=== PATIENT | female | born 1940 | race Caucasian/White ===

== ENCOUNTER 2017-04-28 09:26 | Outpatient (CLI) | payer MEDICARE ==
--- NOTE | 2017-04-28 11:04 | RAD ---
LEFT HIP TWO VIEWS: History: Hip pain. FINDINGS: There is some mild arthritic change of the hip. Minimal joint space narrowing and some minimal spur formation. No fracture. The bones appear slightly demineralized. 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 POS: [facility]
== END 2017-04-28 09:27 | disposition home or self-care (01) ==
LOC: SCSRAD 09:26
PROVIDERS: ATTEND Family Medicine
DX: M25.552 Pain in left hip (principal); M16.12 Unilateral primary osteoarthritis, left hip

== ENCOUNTER 2017-05-27 16:17 | Outpatient (CLI) | payer MEDICARE ==
--- NOTE | 2017-05-27 19:11 | MRI ---
MRI LUMBAR SPINE 05/27/17 HISTORY: Left leg weakness three to four months. Multiplanar and multisequence noncontrast enhanced MRI images of lumbar spine obtained. There is some disc space height loss at T11-12. T12-L1: Unremarkable. L1-2: Central canal and neural foramen are patent. No evidence of neural foraminal narrowing is seen. L2-3: There is disc desiccation. There is a broad based disc bulge with bilateral facet and ligamentu m flavum hypertrophy. This results in a moderate degree of central and lateral recess stenosis. The neural foramen are patent. L3-4: Disc desiccation is seen. There is a broad based disc bulge with bilateral facet and ligamentum flavum hypertrophy. This results in mild to moderate central and lateral recess stenosis. Mild bilat eral neural foraminal narrowing is also seen. L4-5: Disc desiccation is seen. There is a broad based disc bulge with bilateral facet and ligamentum flavum hypertrophy. This results in a moderate degree of central and lateral recess stenosis. There is mild anterolisthesis of L4 on L5. L5-S1: Disc desiccation is seen. There is a broad based disc bulge with bilateral facet hypertrophy. No significant degree of central stenosis is seen. IMPRESSION: Broad based disc bulges at L2-3, L3-4, and L4-5. There is mild anterolisthesis of L4 on L5. No eviden ce of significant neural foraminal narrowing is seen. POS: [facility]
== END 2017-05-27 16:18 | disposition home or self-care (01) ==
LOC: MRI 16:17
PROVIDERS: ATTEND Nurse Practitioner Family
DX: M51.16 Intervertebral disc disorders with radiculopathy, lumbar region (principal); M43.16 Spondylolisthesis, lumbar region
CPT/HCPCS: 72148

== ENCOUNTER 2017-06-05 10:31 | Outpatient (CLI) | payer MEDICARE ==
--- NOTE | 2017-06-05 12:10 | RAD ---
4 VIEWS LUMBAR SPINE: Date: 06/05/17 HISTORY: Lumbar radiculopathy. Patient states having left leg pain and left foot numbness for 10-12 years. COMPARISON: MRI lumbar spine on 05/27/17. FINDINGS: There are five non-rib bearing lumbar-type vertebral bodies. There is mild left convex curvature of t he lumbar spine. There is Grade I anterolisthesis of L4 on L5, and the degree of listhesis does veliz e between the flexion and extension views measuring 7.0 mm on flexion and 4.0 mm on extension. No add itional level of subluxation is seen. The vertebral body heights and intervertebral disc spaces do ap pear to be within normal limits aside from slight height loss of the L3-4 intervertebral disc space. No fracture is identified. There are facet and degenerative changes seen in the lower lumbar spine. Surgical clips overlie the right upper quadrant. IMPRESSION: 1. Grade I anterolisthesis of L4 on L5, and there is abnormal translational motion at this level bet ween the flexion and extension views. 2. No acute fracture visualized. 3. Facet degenerative changes lower lumbar spine, and there is mild left convex scoliosis of lumbar spine. POS: [facility]
== END 2017-06-05 10:32 | disposition home or self-care (01) ==
LOC: SCSRAD 10:31
PROVIDERS: ATTEND Specialist
DX: M51.16 Intervertebral disc disorders with radiculopathy, lumbar region (principal); M43.16 Spondylolisthesis, lumbar region; M41.9 Scoliosis, unspecified
CPT/HCPCS: 72110

== ENCOUNTER 2017-07-29 09:07 | Outpatient (CLI) | payer MEDICARE ==
[2017-07-29 10:40] LABS: Anion Gap 13 mmol/L (10-20); BUN (Urea Nitrogen) 19 mg/dL (9.8-20.1); Calc. Creatinine Clearance 0 mL/min (70-130); Calcium 9.2 mg/dL (7.8-10.44); Carbon Dioxide 27 mmol/L (23-31); Chloride 105 mmol/L (98-107); Estimated GFR-MDRD 46; Glucose 78 mg/dL (83-110); Potassium 3.6 mmol/L (3.5-5.1); Sodium 141 mmol/L (136-145)
== END 2017-07-29 09:08 | disposition home or self-care (01) ==
LOC: LABBT 09:07
PROVIDERS: ATTEND Neurological Surgery
DX: Z01.818 Encounter for other preprocedural examination (principal); M54.16 Radiculopathy, lumbar region
CPT/HCPCS: 80048; 93005; 93010

== ENCOUNTER 2017-08-03 05:36 | Day surgery (SDC) | payer MEDICARE ==
[2017-07-29 09:29] VITALS: BMI 31.0
--- NOTE | 2017-08-03 05:53 | HP ---
HISTORY OF PRESENT ILLNESS: Ms. Lo is a 76-year-old woman, who presents for evaluation of low ba ck pain that radiates in an L5 fashion down to the left lower extremity in the setting of an MRI from [facility] reveals a slip at L4-L5 with lateral recess narrowing, effectively descending the L5 nerv e root. The slip is stable on flexion and extension views. She has had epidural steroid injections with Dr. Deras, which does not help as much as she would have hoped, and she is here today to dis cuss further intervention. PAST MEDICAL HISTORY: Significant for headaches, , acid reflux, irritable bowel disease, hypoth yroidism. CURRENT MEDICATIONS: Estradiol, medroxyprogesterone, levothyroxine, triamterene, hydrochlorothiazide , dicyclomine, pantoprazole, and metoclopramide. PAST SURGICAL HISTORY: Bladder sling, plastic surgery procedures, laparoscopic cholecystectomy. PHYSICAL EXAMINATION: NEUROLOGIC: Patient is alert and oriented x3. Gait is mildly antalgic. Lower extremity motor exam is normal. Reflexes are equal and present bilaterally at the patella. ALLERGIES: PENICILLIN. ASSESSMENT: Lumbar radiculopathy. PLAN: Discussed case with Dr. Apodaca, who met with the patient, reviewed imaging, and advocated for L 4-L5 decompression. We explained to the patient the risks, benefits, and alternatives to the procedu re. The patient expressed understanding and would like to move forward with surgery as discussed. I believe this patient is mentally competent and capable of making medical decisions for herself and f orward with surgery as planned. Jorge Vivas PA-C dictating for Dr. Apodaca.
[2017-08-03] MEDS ORDERED: Bupivacaine 0.5% 10 ML VIAL ONE (06:21)
[2017-08-03] MEDS ORDERED: Thrombin 5000 UNITS/5 ML VIAL ONE (06:21)
[2017-08-03] MEDS ORDERED: Levofloxacin 500 mg/D5W 100 ml Premix Bag ONE (06:50)
[2017-08-03] MEDS ORDERED: Clindamycin/D5W 900 mg/50 ml Premix Bag ONE (06:50)
[2017-08-03] MEDS ORDERED: Fentanyl 100 MCG/2 ML VIAL ONE ×3 (06:51→08:43)
--- NOTE | 2017-08-03 08:08 | OP ---
DATE OF PROCEDURE: 08/03/2017 SURGEON: Alejandro Apodaca M.D. VINYL DIPPER: Jorge Vivas PA-C INDICATION: Pain. DIAGNOSIS: Lateral recess stenosis with radiculopathy. PROCEDURE: Left L4-5 hemilaminectomy, medial facetectomy, decompression. ANESTHESIA: General. TECHNIQUE: The patient was brought into the operating room and placed under general anesthesia. She was flipped from a supine to prone position on the operating room table. A linear incision was plan padilla over the L4-L5 segment. After prepping and draping and after appropriate operative pause, the in cision was created. The soft tissues were swept left of midline. A self-retaining retractor was eligio eliane in the wound for optimal exposure. After confirming the appropriate level, a C-arm fluoroscopy, a high-speed cutting drill bit was used to perform a laminectomy along the inferior aspect of L4 and the superior aspect of L5. A 2, 3, and 4 mm Kerrisons were used to complete the laminectomy and perf orm medial facetectomy until the lateral recesses were well decompressed. The wound was irrigated. Hemostasis was maintained throughout. The wound was then closed in anatomic layers and a pressure dr essing was applied. There were no known procedural complications.
[2017-08-03] MEDS ORDERED: HYDROcodone/Acetaminophen 5/325 mg Tablet ONE (10:21)
[2017-08-03] MEDS ORDERED: Glycopyrrolate 0.2 MG/ML 5 ML SYRINGE ONE (15:02)
[2017-08-03] MEDS ORDERED: Lidocaine 1% PF 5 ML VIAL ONE (15:02)
[2017-08-03] MEDS ORDERED: PROPOFOL 200 MG/20 ML VIAL ONE (15:02)
[2017-08-03] MEDS ORDERED: Dexamethasone 20 MG/5 ML VIAL ONE (15:02)
[2017-08-03] MEDS ORDERED: Ondansetron HCl/PF 4 MG/2 ML Vial ONE (15:02)
== END 2017-08-03 12:47 | disposition home or self-care (01) ==
LOC: SDC 05:36
PROVIDERS: ATTEND Neurological Surgery
PROC: 01NB0ZZ Release Lumbar Nerve, Open Approach (ICD-10-PCS; principal; 2017-08-03)
DX: M48.061 Spinal stenosis, lumbar region without neurogenic claudication (principal); M54.16 Radiculopathy, lumbar region; K21.9 Gastro-esophageal reflux disease without esophagitis; K58.9 Irritable bowel syndrome, unspecified; E03.9 Hypothyroidism, unspecified; Z79.890 Hormone replacement therapy; Z79.82 Long term (current) use of aspirin; Z79.1 Long term (current) use of non-steroidal anti-inflammatories (NSAID); Z79.899 Other long term (current) drug therapy; Z88.0 Allergy status to penicillin; Z91.048 Other nonmedicinal substance allergy status; Z96.1 Presence of intraocular lens; Z90.49 Acquired absence of other specified parts of digestive tract; Z98.890 Other specified postprocedural states
CPT/HCPCS: 76001; 96374; J1100; J1956; J2001; J2405; J2704; J3010; J3490

== ENCOUNTER 2017-11-17 12:30 | Outpatient (CLI) | payer MEDICARE ==
--- NOTE | 2017-11-17 17:39 | MRI ---
LUMBAR SPINE MRI WITH AND WITHOUT CONTRAST 11/17/17 HISTORY: Lumbar radiculopathy. TECHNIQUE: Multiplanar and multisequence MR imaging of the lumbar spine provided with and without contrast. FINDINGS: The sagittal STIR imaging demonstrates no focal area of osseous marrow edema. There is anterolisthesis of L4 on L5 measuring in the 4 mm range. Assuming five lumbar type vertebral bodies, the conus medullaris terminates at the L1 level. T12-L1: There is disc space narrowing and disc desiccation and mild disc bulge. There is bilateral fa cet hypertrophy. There is no significant central canal and neural foraminal stenosis. L1-2: There is mild bilateral facet hypertrophy. There is disc space narrowing and disc desiccation a nd mild disc bulge with no significant central canal or neural foraminal stenosis. L2-3: Moderate bilateral facet hypertrophy and hypertrophy of ligamentum flavum noted. There is disc space narrowing and disc desiccation and mild disc bulge with mild central canal stenosis. There is n o significant neural foraminal stenosis on either side. L3-4: There is disc space narrowing, disc desiccation, and disc bulge. There is mild central canal st enosis. There is mild facet hypertrophy bilaterally with mild bilateral neural foraminal stenosis. L4-5: Prominent bilateral facet hypertrophy and hypertrophy of the ligamentum flavum noted, right gre ater than left. There is disc space narrowing and disc desiccation and mild disc bulge. There is mild neural foraminal stenosis on the left. No significant central canal or right neural foraminal stenos is. L5-S1: There is bilateral facet hypertrophy. There is a left paracentral annular tear. There is disc space narrowing and disc desiccation and mild disc bulge with no significant central canal or neural foraminal stenosis. Postcontrast imaging is provided. There is no abnormal enhancement involving the nerve roots of the c auda equina of the contents of the thecal sac. There is enhancement associated with the posterior paraspinal soft tissues medially at the L4-5 level to the left of midline extending to the dorsal aspect of the thecal sac, evidence of postoperative c hange. No abnormal enhancement is seen involving the osseous structures or the intervertebral discs. The imaged retroperitoneal structures appear grossly unremarkable. IMPRESSION: Postoperative and degenerative changes noted within the lumbar spine as described above. There is no severe central canal or neural foraminal stenosis at any level. POS: [facility]
== END 2017-11-17 12:31 | disposition home or self-care (01) ==
LOC: SCSMRI 12:30
PROVIDERS: ATTEND Neurological Surgery
DX: M47.26 Other spondylosis with radiculopathy, lumbar region (principal); Z98.1 Arthrodesis status
CPT/HCPCS: 72158; 82565

== ENCOUNTER 2018-12-30 08:58 | Outpatient (CLI) | payer MEDICARE ==
--- NOTE | 2018-12-30 09:34 | RAD ---
3 views of the lumbar spine: 12/30/2018 COMPARISON: 06/05/2017 HISTORY: Back pain with left lower extremity radiculopathy FINDINGS: There is a mild new superior endplate fracture involving the L2 vertebral body with approxi mately 10% loss of vertebral body height centrally. Neutral lateral examination demonstrates anterolisthesis of L4 on L5 measuring 9 mm. Multilevel facet hypertrophic change noted within the lum bar spine. Flexion imaging demonstrates 1.1 cm of anterolisthesis of L4 on L5 and extension imaging demonstrates 9 mm of anterolisthesis of L4 on L5. IMPRESSION: New mild superior endplate fracture at L2. Multilevel facet hypertrophic change within th e lumbar spine with anterolisthesis noted at L4-5 measuring up to 1.1 cm with flexion. CODE T
== END 2018-12-30 08:59 | disposition home or self-care (01) ==
LOC: TBSIIMAG 08:58
PROVIDERS: ATTEND Neurological Surgery
DX: M43.16 Spondylolisthesis, lumbar region (principal); S32.029A Unspecified fracture of second lumbar vertebra, initial encounter for closed fracture
CPT/HCPCS: 72100

== ENCOUNTER 2023-04-28 11:03 | Outpatient (CLI) | payer MEDICARE | END 2023-04-28 11:04 | disposition home or self-care (01) | LOC: SCSRAD 11:03 | PROVIDERS: ATTEND Family Medicine | DX: M25.562 Pain in left knee (principal) ==

== ENCOUNTER 2023-07-08 12:42 | Outpatient (CLI) | payer MEDICARE | END 2023-07-08 12:43 | disposition home or self-care (01) | LOC: SCSMRI 12:42 | PROVIDERS: ATTEND Family Medicine | DX: M25.562 Pain in left knee (principal); M48.061 Spinal stenosis, lumbar region without neurogenic claudication; M51.36 Other intervertebral disc degeneration, lumbar region; M51.26 Other intervertebral disc displacement, lumbar region; S83.232A Complex tear of medial meniscus, current injury, left knee, initial encounter; S83.282A Other tear of lateral meniscus, current injury, left knee, initial encounter; M71.22 Synovial cyst of popliteal space [Baker], left knee; M22.8X2 Other disorders of patella, left knee; Z98.890 Other specified postprocedural states | CPT/HCPCS: 72158; 82565 ==

== ENCOUNTER 2024-06-14 10:36 | Outpatient (CLI) | payer MEDICARE | END 2024-06-14 10:37 | disposition home or self-care (01) | LOC: SCSRAD 10:36 | PROVIDERS: ATTEND Family Medicine | DX: R06.00 Dyspnea, unspecified (principal); J90 Pleural effusion, not elsewhere classified | CPT/HCPCS: 71046 ==